=== PATIENT | female | born 1970 | race Caucasian/White ===

== ENCOUNTER → 2022-01-15 12:42 | Outpatient (CLI) | payer OTHER, SELFPAY ==
--- NOTE | 2022-01-15 | DI.MRI.S_ITS ---
PROCEDURE: MR FOOT RT WO/W CON INDICATIONS: Localized swelling, mass and lump,right lower limb TECHNIQUE: Noncontrast sagittal T1 spin echo and T2 fast spin echo with fat saturation, long-axis T1 spin echo and T2 fast spin echo with fat saturation; short-axis T1 spin echo, proton density fast spin echo, and T2 fast spin echo with fat saturation through the forefoot. Post-contrast short axis, long axis, and sagittal T1 spin echo with fat saturation through the forefoot. COMPARISON: [facility] [place], CR, XR FOOT 3+ VIEWS RIGHT, 12/23/2021, 14:16. FINDINGS: Image quality: Excellent. Bones and joints: Moderate hallux valgus. Moderate degenerative changes of the 1st metatarsophalangeal joint. There is mild lateral subluxation of the hallux sesamoids. Osseous edema and enhancement is seen within the distal 2nd metatarsal with multifocal erosions of the metatarsal head. There is a moderate 2nd metatarsophalangeal joint effusion. Chronic regularity of the 2nd proximal interphalangeal joint is also seen. Moderate degenerative changes at the 4th tarsometatarsal joint with subchondral cystic changes and edema. Additional scattered degenerative changes throughout the midfoot and hindfoot. A probable chronic osteochondral lesion is seen at the medial talar dome. Cystic changes within the central calcaneus most likely represent an intraosseous ganglion. Soft tissues: A mildly edematous circumscribed ossification is seen dorsal to the distal 2nd metatarsal measuring approximately 2.0 x 1.2 x 1.4 cm, corresponding one of the palpable abnormalities and to the ossification seen on prior radiographs. The 2nd extensor digitorum longus tendon trouble superior to the ossification in the extensor digitorum brevis tendon courses lateral to the ossification. Adjacent to the skin marker at the lateral aspect of the midfoot, there is a lobular nonenhancing ganglion cyst measuring approximately 1.8 x 1.4 x 0.7 cm which appears to be rising from the 4th tarsometatarsal joint. Fluid is seen tracking along the 2nd flexor tendons, consistent with tenosynovitis. No suspicious soft tissue enhancement. The visualized plantar foot muscles demonstrate normal signal and bulk. Visualized flexor and extensor tendons appear otherwise intact, without tenosynovitis. The principal Lisfranc ligament appears intact. Nonspecific subcutaneous soft tissue edema/fluid is seen at the dorsal aspect of the hindfoot. IMPRESSION: 1. Osseous edema within the distal 2rd metatarsal with multifocal chronic appearing osseous erosions of the metatarsal head and secondary degenerative changes at the 2nd metatarsophalangeal joint, which may be related to remote prior trauma versus a chronic infectious or inflammatory process such as gout or an inflammatory arthritis. 2. Moderate 2nd metatarsophalangeal joint effusion. A large ossification at the dorsum of the foot measuring up to 2 cm is is likely located within the 2nd metatarsophalangeal joint space and corresponds to the palpable abnormality. 3. Lobular 1.8 cm ganglion cyst extending dorsally from the 4th tarsometatarsal joint corresponds to the palpable abnormality at the lateral midfoot. 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 4. Hallux valgus and moderate 1st metatarsophalangeal joint osteoarthrosis. Mild lateral subluxation of the hallux sesamoids. 5. Second extensor tendons are displaced by the dorsal ossification. There is mild tenosynovitis of the 2nd flexor tendons. 6. Probable chronic osteochondral lesion at the medial talar dome, which is included on sagittal images only. Dictated by: Saad Carrero M.D. on 01/15/2022 at 20:22 Approved by: Saad Carrero M.D. on 01/15/2022 at 20:38
== END ==
PROVIDERS: PCP Family Medicine; Referring Provider Podiatrist; Visit Provider Podiatrist
DX: R22.41 Localized swelling, mass and lump, right lower limb (principal); M25.474 Effusion, right foot; M67.471 Ganglion, right ankle and foot; M19.071 Primary osteoarthritis, right ankle and foot; M20.11 Hallux valgus (acquired), right foot; M65.871 Other synovitis and tenosynovitis, right ankle and foot
CPT/HCPCS: 73720; A9579

== ENCOUNTER → 2022-10-30 07:38 | Outpatient (CLI) | payer OTHER, SELFPAY ==
[2022-10-30 09:51] LABS: BUN Creatinine Ratio 16.7 (6-22); Blood Urea Nitrogen 9 mg/dL (7-17); Calcium 9.4 mg/dL (8.4-10.2); Carbon Dioxide 29 mmol/L (22-32); Chloride 101 mmol/L (98-107); Cholesterol 230 mg/dL (140-199); Estimated Glomerular Filt Rate > 60 mL/min (>60); Glucose 77 mg/dL (70-100); HDL Cholesterol 64 mg/dL (40-60); HEMOLYSIS < 15 (0-50); LDL Cholesterol Calculated 92 mg/dL (<100); Potassium 4.4 mmol/L (3.4-5.1); Sodium 138 mmol/L (137-145); Triglycerides 372 mg/dL (35-150)
[2022-10-30 10:17] LABS: TSH w/ Reflex to FT4 2.61 uIU/mL (0.47-4.68)
[2022-10-31 09:17] LABS: x Labcorp Estim. Avg Glu (eAG) 100 mg/dL (.); x Labcorp Hemoglobin A1c 5.1 % (4.8-5.6)
== END ==
PROVIDERS: PCP Family Medicine; Referring Provider Nurse Practitioner Adult Health; Visit Provider Nurse Practitioner Adult Health
DX: Z01.419 Encounter for gynecological examination (general) (routine) without abnormal findings (principal)
CPT/HCPCS: 36415; 80048; 80061; 83036; 84443

== ENCOUNTER → 2023-12-25 17:23 | Outpatient (CLI) | payer OTHER, SELFPAY ==
--- NOTE | 2023-12-25 17:24 | DI.MRI.S_ITS ---
PROCEDURE: MR FOOT RT WO/W CON INDICATIONS: LOCALIZED SWELLING,MASS AND LUMP RIGHT LOWER LIMB TECHNIQUE: Multiphasic, multisequence MRI of the forefoot was performed, before and after intravenous contrast administration. COMPARISON: [facility] [place], CR, XR FOOT 3+ VIEWS RIGHT, 10/29/2023, 14:43. [facility], MR, MR FOOT RT WO/W CON, 01/15/2022, 13:09. FINDINGS: Image quality: Excellent. Bones and joints: Severe degenerative changes of the 2nd metatarsophalangeal joint, with joint space narrowing, osteophytosis, and moderate amount of effusion. There is at large ossified intra-articular body dorsal to the 2nd metatarsal head, measuring 2.1 cm, increasing size in comparison to prior exam (previously 1.7 cm). There is subchondral cystic changes, and extensive marrow edema about the 2nd metatarsal phalangeal joint, degenerative. Moderate degenerative changes 2nd proximal interphalangeal joint with subchondral cystic changes. Severe degenerative changes of the 2nd tarsometatarsal joint with associated marrow edema, progressed from prior exam. Mild subchondral cystic changes of the 4th metatarsal head, new from prior exam, degenerative. Mild degenerative changes of the 4th and 5th tarsometatarsal joint with associated subchondral cystic changes and marrow edema. There is a 1.2 cm ganglion cyst dorsal to the 4th tarsometatarsal joint, minimal increased in size in comparison to prior exam. T2 hyperintense lesion at the calcaneus, about the angle of [place], measuring 1.5 cm, unchanged from prior exam, nonspecific. Degenerative changes in the tibiotalar joint with subchondral cystic changes in the talus dome, incompletely evaluated. Hallux valgus. Soft tissues: The flexors, and the extensor tendons are unremarkable. Muscles are normal in signal. The Lisfranc ligament is intact. Mild 1st intermetatarsal bursitis. IMPRESSION: 1. Severe degenerative changes of the 2nd metatarsophalangeal joint with an enlarging ossified intra-articular body dorsal to the 2nd metatarsal head. 2. Mild degenerative changes of the 4th and 5th tarsometatarsal joint with a slightly enlarging ganglion cyst dorsal to the 4th tarsometatarsal joint. 3. Additional multifocal degenerative changes in the mid and forefoot, progressed from prior exam. Dictated by: Carmen Salazar M.D. on 12/28/2023 at 9:30 Approved by: Carmen Salazar M.D. on 12/28/2023 at 9:46
== END ==
LOC: MRI 17:24
PROVIDERS: PCP Family Medicine; Referring Provider Podiatrist; Visit Provider Podiatrist
DX: R22.41 Localized swelling, mass and lump, right lower limb (principal); M67.471 Ganglion, right ankle and foot
CPT/HCPCS: 73720; A9579

== ENCOUNTER 2024-02-12 08:50 | Day surgery (SDC) | payer OTHER, SELFPAY ==
[2024-02-10 12:10] VITALS: BMI 21.5
--- NOTE | 2024-02-12 | PATH_ITS ---
[facility] Accession Number: [id number] No. of containers..01 Tissue . 01 Material submitted: . foot - SECOND METATARSOPHALANGEAL JOINT RIGHT FOOT MASS . 01 Diagnosis: SECOND METATARSOPHALANGEAL JOINT, RIGHT FOOT MASS, EXCISION: Osteocartilaginous fragment and soft tissue with degenerative changes, please see comment. Negative for significant inflammation and malignancy. MRV 02/19/2024 1642 Local . 01 Comment: The findings are compatible with exostosis/bunion. . There is focal cyst formation with degenerative changes in the adjacent soft tissue, suggestive of ganglion cyst. . Negative for significant inflammation, acute/chronic osteomyelitis, or malignancy. . Clinical and radiologic correlation is recommended. . As part of ongoing research quality assurance specialist, this case is also reviewed by Dr. Symone Venegas, who agrees with the intepretation. . 01 Electronically signed: . Marivel White MD, Pathologist NPI- [id number] . 01 Gross description: . Received in formalin with two patient identifiers and second metatarsophalangeal junction right foot mass, is a hdz, irregular, hard tissue fragment consistent with bone, 2.2 x 1.9 x 1.7 cm. Inked blue and sectioned to reveal hdz osseous tissue that is difficult to section with a scalpel. Network Security Consultant sections are submitted in A1 following decalcification. ([id number]) /MRV 02/16/20242054 Local . 01 Pathologist provided ICD-10: M67.471, M19.079, M21.611 . 01 CPT . 547213, 156605 Specimen Comment: A courtesy copy of this report has been sent to [phone] Performed at: [address] [facility], [place], [place] [id number] MD Braxton Sparks MD Phone: [phone]
[2024-02-12 09:26] VITALS: BMI 21.5
[2024-02-12 09:36] VITALS: BP 127/83; PULSE 74; RESP 18; TEMP 36.8; O2SAT 95
[2024-02-12] MEDS: LACTATED RINGERS 1,000 ML 42 ML IV (09:46)
--- NOTE | 2024-02-12 12:36 | PM.PREOP ---
Pre-operative Note Interval Note History & Physical reviewed/Exam performed by Physician: Yes Changes to H&P: No
--- NOTE | 2024-02-12 12:36 | PM.OP.1 ---
Operative Date/Time/Diagnoses Date of procedure: 02/12/24 Time of procedure: 12:37 Pre-op diagnosis: Right foot bone mass second metatarsophalangeal joint area with arthritis and midfoot ganglion cyst Post-op diagnosis: same Procedure & Clinicians Procedure: 1. Right foot excision bone mass with cheilectomy second metatarsophalangeal joint 2. Right fourth/fifth tarsometatarsal joint ganglion cyst excision Same procedure as scheduled: Yes Indications: 53 yo female with ongoing soreness to the right foot with bone mass and arthritic changes to the second metatarsophalangeal joint area and second metatarsal head along with a ganglion cyst to the right midfoot. Conservative measures failed to alleviate her pain and she wished to have surgical intervention at this time. We spoke of the risks, potential complications, expected outcomes, alternatives. Consent was signed, no contraindications to the procedure at this time. Surgeon: Paola Mijares Click Yes if Unassisted: Yes Anesthesia Type: General Operative Notes Closure Type: primary Specimen(s): other (Bony mass right second metatarsophalangeal joint 2.5 x 2.0 x 1.2 cm.) Estimated Blood Loss (mL): 40 Blood products transfused: none Tourniquet time (min): 23 Procedure in detail: The patient was brought to the operating room and placed on the operating table in the supine position. Tourniquet was placed about the right thigh. Patient is well-padded and appropriately supported. After induction of general anesthesia the right foot and ankle were prepped and draped in the usual aseptic manner. The tourniquet was inflated. 1. Incision was made over the right second metatarsophalangeal joint extending to the neck of the metatarsal. The incision was deepened through subcutaneous tissues being careful to identify and retract all vital neurovascular structures. All bleeders were cauterized and ligated as necessary. The very thick capsule was entered dorsally at the joint and this exposed the large bone seated on top of the joint and slightly proximal. There was some joint fluid that exuded but the majority of the mass was the bone. The bone was freely seated there but had some attachment to the soft tissue of the joint underneath it, no bony extension. The mass of bone was able to be easily resected from the underling soft tissue attachments and was passed from the table to be sent to Pathology. It had formed pressure areas to the metatarsal head/neck which showed as spurring. There were also some spurs and formation changes to the proximal phalangeal base and these spurs were manually reduced and then shaved with a manual rasp. The head of the metatarsal was actually centrally preserved of most of it's cartilage. The area was irrigated with copious amounts normal sterile saline. The toe showed increased motion without crepitus on dorsiflexion and plantarflexion. Due to the chronic changes it still has some contracture at the metatarsophalangeal joint. The area was irrigated with normal saline and the thickened, stretched capsule dorsally was used to close over the joint with vicryl. 2. Incision was made over the lateral fourth dorsal tarsometatarsal joint over the suspected ganglion cyst. The incision was deepened through subcutaneous tissues being careful to identify and retract all vital neurovascular structures. All bleeders were cauterized and ligated as necessary. Immediately the ganglion cyst was found and appeared to be coming from the lateral base of the fourth metatarsocuboid joint into the intermetatarsal space. It exuded about 3 drops of gelatinous fluid, clear, and consistent with ganglion cyst. it was made of the surrounding soft tissue so the main segment of portion of fascia/ligament edge was resected then currette and cautery was used to disrupt the stalk or area it was coming from. The area was irrigated with normal saline. The tourniquet was deflated and a prompt hyperemic response was seen in the foot. Deep (on the metatarsophalangeal joint incision) and subcutaneous closure (on both incisions) closure was performed with Vicryl and nylon suture used to close the skin. The foot was dressed with a lightly compressive sterile dressing Patient was then placed in a postoperative shoe and transferred to PACU with vital signs stable. Complications: none Post-operative Condition: stable Disposition: PACU Plan for aftercare: Following a period of postoperative monitoring, the patient will be discharged to home on written and oral postoperative instructions including keeping the dressing dry and intact, no greater than 50% weight to the surgical foot, icing and elevating the foot when seated home. DVT prevention techniques have been reviewed. For the 1st postoperative visit the dressing will be changed and close to the 3rd postoperative week we will likely remove the sutures. Due to a delay in her start time due to a emergent case ahead of our operative time, an rx for her pain medication was sent to the hospital outpatient pharmacy to [facility] today as [place]
[2024-02-12] MEDS: BUPIVACAINE 0.5% (PF) 30 ML VIAL INJ (13:00)
[2024-02-12] MEDS: LIDOCAINE 2% INJ MDV 20ML INJ (13:00)
[2024-02-12] MEDS: CEFAZOLIN 2 GM/100 ML PREMIX 100 ML IV (13:05)
--- NOTE | 2024-02-12 13:19 | SUR.OPER ---
Supine on padded OR bed, head on pillow, arms secured on padded arm boards at <90 degrees abduction, legs uncrossed, safety belt at thigh, blanket over lower legs.
[2024-02-12 14:15] VITALS: BP 150/98; PULSE 83; RESP 15; TEMP 36.3; O2SAT 98
[2024-02-12 14:24] VITALS: BP 126/90; PULSE 69; RESP 19; O2SAT 100
[2024-02-12 14:28] VITALS: BP 142/85; PULSE 66; RESP 11; O2SAT 99
[2024-02-12 14:39] VITALS: BP 150/96; PULSE 75; RESP 13; TEMP 36.2; O2SAT 99
[2024-02-12] MEDS: HYDROCODONE/ACET 5/325 TABLET 1 TAB PO (15:02)
== END 2024-02-12 15:06 | disposition home or self-care (01) ==
PROVIDERS: PCP Family Medicine; Referring Provider Podiatrist; Visit Provider Podiatrist
PROC: (CPT 28104; principal; 2024-02-12 10:30)
DX: M19.071 Primary osteoarthritis, right ankle and foot (principal); M67.471 Ganglion, right ankle and foot
CPT/HCPCS: 28104; 28090; J0690; J1885; J2405; J2704; J3010

== ENCOUNTER → 2025-01-19 07:45 | Outpatient (CLI) | payer OTHER, SELFPAY ==
--- NOTE | 2025-01-19 07:47 | DI.MRI.S_ITS ---
PROCEDURE: MR KNEE RT WO CON INDICATIONS: right knee pain TECHNIQUE: Noncontrast sagittal PD fast spin echo and T2 fast spin echo with fat saturation, sagittal 3-D FLASH with fat saturation; coronal T1 spin echo and PD fast spin echo with fat saturation, and axial PD fast spin echo with fat saturation through the knee. COMPARISON: None. FINDINGS: Quality: Adequate Menisci: Medial meniscus: Radial free edge tear of the posterior horn Lateral meniscus: Intact Cruciate ligaments: Anterior cruciate ligament: Intact Posterior cruciate ligament: Intact Collateral ligaments: Medial collateral ligament: Intact Lateral collateral ligament complex: Intact Extensor mechanism: Quadriceps tendon: Intact Patellar tendon: Intact Retinaculum: Intact Fat pads: Unremarkable Cartilage: Focal full-thickness cartilage loss along the weight-bearing portion of the medial femoral condyle and lateral femoral condyle. Tricompartmental marginal osteophytes. Broad areas of full-thickness cartilage loss along the medial patellar facet with subchondral marrow edema like lesions. Bones: No fracture. Fluid spaces: Joint: Moderate effusion Popliteal cyst: None Other: None IMPRESSION: Severe tricompartmental osteoarthritis. Medial meniscus tear. Dictated by: David Lambert M.D. on 01/19/2025 at 16:52 Approved by: David Lambert M.D. on 01/19/2025 at 16:55
== END ==
LOC: MRI 07:47
PROVIDERS: PCP Family Medicine; Referring Provider Family Medicine; Visit Provider Family Medicine
DX: M17.11 Unilateral primary osteoarthritis, right knee (principal); S83.241A Other tear of medial meniscus, current injury, right knee, initial encounter; M25.461 Effusion, right knee; M25.561 Pain in right knee
CPT/HCPCS: 73721